=== PATIENT | male | born 1965 | race Caucasian/White ===

== ENCOUNTER 2021-05-03 06:54 | Outpatient (CLI) | payer OTHER, SELFPAY ==
[2021-05-03 06:58] VITALS: BMI 27.3
--- NOTE | 2021-05-03 06:59 | ECG_ITS ---
[facility] Test Date: 2021-05-03 Pat Name: Taz Scott Department: Room: Gender: Male Joint Yarner: Ignacia Mitchell : 1965 Requested By: Delma Arias Order Number: [id number] Annmarie MD: Jessica Collins M.D. Interpretive Statements NAME OF STUDY: TREADMILL STRESS TEST INDICATION: Palpitations Baseline blood pressure of 144/109 mm Hg, heart rate of 72 beats per minute and oxygen saturation of 96%. EKG showed normal sinus rhythm, normal axis with nonspecific T wave inversion in lead III. The patient exercised for 9 minutes 24 seconds on a standard Jan protocol. Patient attained a maximum heart rate of 156 beats per minute(93% of the maximum predicted heart rate) with a blood pressure at the peak exercise of 168/103 mm Hg and oxygen saturation 90%. The EKG at the peak exercise revealed sinus tachycardia with no significant ST-T wave changes. Patient did not have any chest pain or any significant arrhythmis with the exercise. The study was terminated due to exertional fatigue and shortness of breath. During the recovery phase, there were no new changes. Blood pressure at the end of the recovery phase was 132/86 mm Hg with a heart rate of 101 beats per minute and oxygen saturation of 96%. CONCLUSION: 1. Normal EKG response to treadmill exercise. 2. No exercise-induced chest pain or cardiac arrhythmia 3. Excellent exercise tolerance, attained a maximum of 13.5 METs. Maximum VO2 47.3 mL/kg/min. 4. Baseline hypertension with normal response to exercise. Electronically Signed On 05-06-2021 18:44:35 PROFESSIONAL CASTER by Jessica Collins M.D. [email or web address].Gnip/store/OM/[id number]/[id number]
[2021-05-03 07:50] VITALS: BP 132/86; PULSE 99
== END 2021-05-03 06:55 | disposition home or self-care (01) ==
LOC: CDL 06:55
PROVIDERS: PCP Physician Assistant; Visit Provider Family Medicine
DX: R00.2 Palpitations (principal)
CPT/HCPCS: 93017

== ENCOUNTER 2021-07-31 23:12 | Emergency (ER) | payer OTHER, SELFPAY ==
--- NOTE | 2021-07-31 23:12 | XRR_ITS ---
PROCEDURE INFORMATION: Exam: XR Chest Exam date and time: 07/31/2021 11:12 PM Age: 55 years old Clinical indication: Shortness of breath; Patient HX: SOB TECHNIQUE: Imaging protocol: XR of the chest. Views: 1 view. COMPARISON: [facility] Chest 2 views 06/08/2017 12:12 PM FINDINGS: Lungs: Unremarkable. No consolidation. Pleural spaces: Unremarkable. No pleural effusion. No pneumothorax. Heart/Mediastinum: Unremarkable. No cardiomegaly. Bones/joints: Unremarkable. XR/XR chest 1V portable [id number] IMPRESSION: No acute findings.
--- NOTE | 2021-07-31 23:12 | ECG_ITS ---
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 Measurements Intervals [place] Rate: 85 P: 63 VA: 167 QRS: 67 QRSD: 92 T: 52 QT: 345 QTc: 410 Interpretive Statements SINUS RHYTHM LEFT ATRIAL ENLARGEMENT [-0.15mV P-WAVE IN V1/V2] No previous ECG available for comparison Electronically Signed On 08-01-2021 17:44:11 NEUROSURGERY RESEARCH DIRECTOR by Marquita Wilhelm M.D. [email or web address].CV Propertiesbrentwood behavioral healthcare of mississippiColor Promosadams county hospitalArtsy/store/OM/[id number]/ecg/[id number]
[2021-07-31 23:16] VITALS: BP 144/102; PULSE 88; RESP 22; TEMP 36.7; O2SAT 98; BMI 28.0
--- NOTE | 2021-08-01 00:07 | PC.NURSE ---
patient states woke up 2245 feeling clammy, light headed, and nausea with elevated heart rate and low BP 90's systolic. they they drive to ER and states was still clammy but was starting to feel better. reports full cardiac work up in the last 3 months and taking lisinopril daily. now states feeling better.
[2021-08-01 00:11] LABS: Basophils % 0.6 %; Eosinophils # 0.2 10^3/uL (0.0-0.8); Eosinophils % 2.4 %; Hematocrit 49.1 % (42.0-52.0); Lymphocytes % 30.3 %; Mean Corpuscular HGB Conc 34.6 g/dL (30.0-36.0); Mean Corpuscular Hemoglobin 30.6 pg (28.0-34.0); Mean Corpuscular Volume 88.5 fl (80-94); Mean Platelet Volume 10.9 fL (7.4-10.4); Monocytes # 0.5 10^3/uL (0.2-0.9); Neutrophils # 3.93 10^3/uL (1.8-7.7); Neutrophils % 58.4 %; Nucleated Red Blood Cells % 0 %; Platelet Count 152 10^3/cmm (130-400); Red Blood Count 5.55 10^6/uL (4.1-5.3); Red Cell Distribution Width 12.7 % (12.1-15.1); White Blood Count 6.7 10^3/uL (4.0-10.0)
[2021-08-01 00:35] LABS: Alanine Aminotransferase 45 U/L (0-41); Albumin Level 4.5 g/dL (3.5-5.2); Alkaline Phosphatase 61 IU/L (40-130); Aspartate Amino Transferase 26 U/L (0-40); Blood Urea Nitrogen 17 mg/dL (6-20); Calcium 8.7 mg/dL (8.5-10.5); Carbon Dioxide 23 mmol/L (22-29); Chloride 100 mmol/L (98-107); Globulin 2.6 g/dL (1.3-4.6); Glomerular Filtration Rate 78.2 mL/min (90-130); Glucose 122 mg/dL (65-115); Osmolality Calculated 283 mOsm/kg (285-295); Sodium 135 mmol/L (136-145); Total Bilirubin 0.2 mg/dL (0.15-1.2); Total Protein 7.1 g/dL (6.6-8.7); Troponin(5th) Baseline 8 ng/L (0-15)
--- NOTE | 2021-08-01 00:46 | ED_ITS ---
HPI - Chest Pain General: Chief Complaint: Chest Pain Stated Complaint: Afib\ SOB \Dizzy Time Seen by Provider: 07/31/21 23:24 Source: patient Mode of arrival: ambulatory Limitations: no limitations History of Present Illness: 55-year-old male who states he woke up this evening felt like he is having palpitations with chest discomfort. He states that he believes that he is had paroxysmal A. fib in the past he states he had a Holter monitor and they were unable to find anything known to recontact the A. fib he said has had symptoms like this over the last year. States that since he has been. Feels much improved his heart rate is slowed down his palpitations have stopped his heart rate here is in the 80s denies any shortness of breath. Associated symptoms: Reports palpitations; Deny abdominal pain, dyspnea, fever(s), nausea or vomiting Review of Systems Const: Denies: fever(s), chills, body aches or change in appetite Eyes: Denies: blurry vision or eye discomfort ENMT: Denies: throat pain or dental pain Card: Reports: chest pain, palpitations and irregular heart rhythm Resp: Denies: dyspnea GI: Denies: abdominal pain, nausea, vomiting or diarrhea : Denies: dysuria Musc: Denies: neck pain or back pain Skin/Breast: Denies: rash Neuro: Denies: headache(s) Psych: Denies: depression Yahir/Lymph: Denies: easy bruising All/Imm: Denies: urticaria Physical Exam Const: COMMON NORMALS: no acute distress, patient oriented x3 and healthy appearing HENMT: COMMON NORMALS: normocephalic and atraumatic HEAD & SCALP: normocephalic and atraumatic Eye: COMMON NORMALS: Equal, round and reactive pupils present and EOMs intact bilaterally PUPIL: Yes Equal, round and reactive pupils present Neck/C-Spine: COMMON NORMALS: full ROM and supple Chest: COMMONS NORMALS: normal inspection of the chest and normal palpation of entire chest wall Resp: COMMON NORMALS: normal respiratory effort, No retractions, No use of accessory muscles and clear to auscultation bilaterally AUSCULTATION: clear to auscultation bilaterally Cardio: COMMON NORMALS: regular rate, regular rhythm and No murmurs present (Cardio) RATE: regular rate RHYTHM: regular rhythm GI: COMMON NORMALS: Normal to inspection, nondistended, normoactive bowel sounds present, Soft to palpation, non-tender and no masses PALPATION: Yes Soft to palpation Extremity: COMMON NORMALS: normal to inspection and full ROM Neuro: COMMON NORMALS: patient oriented x3, moves all extremities and no focal motor deficits Psych: COMMON NORMALS: mental status grossly normal, Normal thought process present and cooperative THOUGHT PROCESS: Normal thought process present Skin: COMMON NORMALS: no rashes or lesions noted and no wounds GENERAL SKIN EXAM: no rashes or lesions noted Course Vital Signs: Vital signs: Vital Signs Temperature 98.1 F 07/31/21 23:16 Pulse Rate 88 07/31/21 23:16 Respiratory Rate 22 H 07/31/21 23:16 Blood Pressure 144/102 07/31/21 23:16 Pulse Oximetry 98 07/31/21 23:16 MDM - Chest Pain Medical Decision Making Patient presents here with palpitations could be possibly SVT or paroxysmal A. fib he has been in normal sinus rhythm here and asymptomatic initial repeat troponins are negative we will get him cardiology follow-up he is return if worsening he understands agrees to plan. Lab Data : 07/31/21 00:03 07/31/21 00:03 Radiology Impressions Chest X-Ray 07/31/21 23:12 IMPRESSION: No acute findings. Laboratory Results WBC 6.7 10^3/uL (4.0-10.0) 07/31/21 00:03 RBC 5.55 10^6/uL (4.1-5.3) H 07/31/21 00:03 Hgb 17.0 g/dL (11.7-16.6) H 07/31/21 00:03 Hct 49.1 % (42.0-52.0) 07/31/21 00:03 MCV 88.5 fl (80-94) 07/31/21 00:03 MCH 30.6 pg (28.0-34.0) 07/31/21 00:03 MCHC 34.6 g/dL (30.0-36.0) 07/31/21 00:03 RDW 12.7 % (12.1-15.1) 07/31/21 00:03 Plt Count 152 10^3/cmm (130-400) 07/31/21 00:03 MPV 10.9 fL (7.4-10.4) H 07/31/21 00:03 Neut % (Auto) 58.4 % 07/31/21 00:03 Lymph % (Auto) 30.3 % 07/31/21 00:03 [place] % (Auto) 8.0 % 07/31/21 00:03 Eos % (Auto) 2.4 % 07/31/21 00:03 Baso % (Auto) 0.6 % 07/31/21 00:03 Neut # (Auto) 3.93 10^3/uL (1.8-7.7) 07/31/21 00:03 Lymph # (Auto) 2.0 10^3/uL (0.8-4.8) 07/31/21 00:03 [place] # (Auto) 0.5 10^3/uL (0.2-0.9) 07/31/21 00:03 Eos # (Auto) 0.2 10^3/uL (0.0-0.8) 07/31/21 00:03 Baso # (Auto) 0.0 10^3/uL (0.0-0.1) 07/31/21 00:03 Nucleated RBC % (auto) 0 % 07/31/21 00:03 Nucleated RBCs # 0.0 /100WBC 07/31/21 00:03 Sodium 135 mmol/L (136-145) L 07/31/21 00:03 Potassium 4.0 mmol/L (3.5-5.1) 07/31/21 00:03 Chloride 100 mmol/L (98-107) 07/31/21 00:03 Carbon Dioxide 23 mmol/L (22-29) 07/31/21 00:03 Anion Gap 16.0 (5-19) 07/31/21 00:03 BUN 17 mg/dL (6-20) 07/31/21 00:03 Creatinine 1.0 mg/dL (0.7-1.2) 07/31/21 00:03 GFR Calculation 78.2 mL/min (90-130) L 07/31/21 00:03 Glucose 122 mg/dL (65-115) H 07/31/21 00:03 Calculated Osmolality 283 mOsm/kg (285-295) L 07/31/21 00:03 Calcium 8.7 mg/dL (8.5-10.5) 07/31/21 00:03 Total Bilirubin 0.2 mg/dL (0.15-1.2) 07/31/21 00:03 AST 26 U/L (0-40) 07/31/21 00:03 ALT 45 U/L (0-41) H 07/31/21 00:03 Alkaline Phosphatase 61 IU/L (40-130) 07/31/21 00:03 Troponin T Baseline 8 ng/L (0-15) 07/31/21 00:03 Troponin T 120 Minute 12.86 ng/L (0-15) 08/01/21 02:17 Total Protein 7.1 g/dL (6.6-8.7) 07/31/21 00:03 Albumin 4.5 g/dL (3.5-5.2) 07/31/21 00:03 Globulin 2.6 g/dL (1.3-4.6) 07/31/21 00:03 EKG Data EKG 1: I personally reviewed and interpreted this EKG as follows: EKG interpretation date: 08/01/21 EKG interpretation time: 23:19 Interpretation: nsr hr [address] or t wave abnormalities qrs 92 qtc 387 EKG 2: I personally reviewed and interpreted this EKG as follows: EKG interpretation date: 08/01/21 EKG interpretation time: 01:37 Interpretation: Normal sinus rhythm heart rate [address] or T wave abnormalities QRS 101 QTC 409 Discharge Plan Discharge Patient Disposition: Home Clinical Impression: Palpitations Condition: Stable Discharge Orders: Discharge ED (Routine); Ordered 08/01/21 Ordered By: Chandrakant Duggan Referrals: Marquita Wilhelm MD [Physician] - 1-3 days Delma Morales PA [Primary Care Provider] - 1-3 days Discharge Diet: Advance as tolerated Discharge Activity: Resume usual activity Patient Instructions: Heart Palpitations (ED) Coding Level of Care Code ED Information Systems Security Specialist for Chg Fwd Exam Comprehensive
--- NOTE | 2021-08-01 01:53 | ECG_ITS ---
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 Measurements Intervals [place] Rate: 72 P: 50 UT: 162 QRS: 45 QRSD: 101 T: 40 QT: 385 QTc: 423 Interpretive Statements SINUS RHYTHM LEFT ATRIAL ENLARGEMENT [-0.15mV P-WAVE IN V1/V2] Compared to ECG 07/31/2021 23:19:55 No significant changes Electronically Signed On 08-01-2021 17:49:35 OIL SPOT WASHER by Marquita Wilhelm M.D. https://[employer].CleverSetsouth sunflower county hospitalCertica Solutionswvumedicine [facility].GoPago/store/OM/[id number]/ecg/[id number]
[2021-08-01 02:41] LABS: Troponin 5 2HR 12.86 ng/L (0-15)
[2021-08-01 02:48] VITALS: BP 112/73; PULSE 71; RESP 16
[2021-08-01 02:50] LABS: Troponin 5 2HR Delta 4.86 ABS# (0-10)
--- NOTE | 2021-08-01 14:19 | DCPLANNER ---
Addendum entered by Gertrudis Nogueira 09/06/21 08:09: Patient had a follow up appointment scheduled for 08.29.[address] Collins at [facility] [place] - patient did attend appointment. Original Note: sports betting manager had message to schedule a follow up appointment for patient with [facility]. sports betting manager called [facility], spoke with Esther, gave clinic patients information. A follow up appointment was scheduled for , August 29, 2021 at 9:[address] Collins. sports betting manager called patient, left message for patient to return vocational case manager phone call.
== END 2021-08-01 02:49 | disposition home or self-care (01) ==
PROVIDERS: Emergency Provider Emergency Medicine; PCP Physician Assistant
DX: R00.2 Palpitations (principal)
CPT/HCPCS: 36415; 71045; 80053; 84484; 85025; 93005; 99283

== ENCOUNTER 2023-06-19 14:50 | Emergency (ER) | payer OTHER, SELFPAY ==
[2023-06-19 14:52] VITALS: BP 167/94; PULSE 89; RESP 15; TEMP 36.6; O2SAT 97
--- NOTE | 2023-06-19 15:27 | ECG_ITS ---
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 Measurements Intervals [place] Rate: 92 P: 55 PA: 164 QRS: 54 QRSD: 94 T: 45 QT: 352 QTc: 437 Interpretive Statements SINUS RHYTHM WITH SINUS ARRHYTHMIA LEFT ATRIAL ENLARGEMENT [-0.15mV P-WAVE IN V1/V2] NONSPECIFIC T-WAVE ABNORMALITY Compared to ECG 08/01/2021 01:37:02 T-wave abnormality now present Electronically Signed On 06-19-2023 16:33:20 COMBINATION TECHNICIAN by Zeferino Bianchi M.D. [email or web address].Oportunistamerit health river regionJustPartsdoctors hospital.[employer]/store/NU/[id number] f
--- NOTE | 2023-06-19 15:27 | XR_ITS ---
WS: [id number] Exam: XR chest 1V portable [id number] Date/Time of Exam: 06/19/2023 3:27 PM Reason For Exam: CXP Comparison 07/31/2021. Findings: The lungs are clear and fully expanded. Costophrenic angles are sharp. No infiltrates. Bronchovascula r relief appears normal. Cardiac silhouette is unremarkable. Bony elements are intact. IMPRESSION: Unremarkable chest radiograph.
--- NOTE | 2023-06-19 15:29 | W.ED.CHESTPA ---
HPI - Chest Pain General: Chief Complaint: Chest Pain Stated Complaint: Nausea, Chest/arm tightness Time Seen by Provider: 06/19/23 15:28 History of Present Illness: 57-year-old male presents to the emergency department stating he feels some pressure around his neck and his shoulders. He states he did lift for wheelbarrow full of wood yesterday and was chopping wood yesterday. He states he also feels like he is having some elevated blood pressure although his blood pressure today when he came to the emergency department was 138/95 he states he was checked out previously by cardiology and has been doing well. He denies increased life stressors. He states he does have a generalized headache and felt like he had some dizziness at that time. He denies active pain but states the muscles of his neck and shoulders feel tight. He states he also felt a little nauseated at that time. Associated symptoms: Reports nausea Review of Systems General: Reports: 10 or more systems reviewed and unremarkable except in HPI and below Card: Reports: other (Chest pressure) GI: Reports: nausea Neuro: Reports: headache(s) and dizziness PFSH ED PFSH: Medical History Tobacco chew use Surgical History S/P appendectomy Family History Father Diabetes Mother Hypertension Social History Smoking and tobacco/nicotine status: current every day tobacco/nicotine user (chewing tobacco) smokeless tobacco Smokeless tobacco user: chewing tobacco Physical Exam Narrative: EXAM NARRATIVE: Constitutional: the patient appears well nourished and with normal development. Vital signs reviewed as documented. HENMT: Normocephalic, atraumatic. External ears normal appearance without drainage. Nose without drainage, normal appearance. Mucus membranes moist. Neck is supple, No jugular venous distension, trachea is midline, no appreciable carotid bruits. No lymphadenopathy. No meningeal signs. Flexion, extension and lateral rotation is without pain. Eyes: Pupils are equal, round, reactive to light and accommodation. No scleral icterus. Extra-ocular movement are intact. Thorax is symmetrical and with equal rise and fall with respirations. Resp: Lungs are clear to auscultation. No wheezes, rales, crackles or ronchi at present. Cardio: Regular rate and rhythm. Positive S1, S2. No appreciable murmurs, rubs or gallops. GI: Abdominal exam reveals normal bowel sounds to all quadrants. No organomegaly. No obvious palpable masses noted. No hepatomegally appreciated. Soft, non-tender to palpation. Extremity: Extremities are non-edematous and both femoral and pedal pulses are 2+ and equal bilaterally. Moves all extremities well, sensation in all extremities. Neuro: Alert and oriented x4, person, place, time and situation. Cranial nerves II through XII are grossly intact, there is no focal neurological deficits that I can appreciate at present. Motor strength in the upper and lower extremities are equal and bilateral 5/5. Psych: Cooperative, calm, normal thought process, appropriate judgment. Skin: No lesions, rashes. No gross abnormalities noted. Back: Symmetrical, no obvious deformity, No CVA tenderness Course Vital Signs: Vital signs: Vital Signs Temperature 97.9 F 06/19/23 18:05 Pulse Rate 68 06/19/23 18:05 Respiratory Rate 14 06/19/23 18:05 Blood Pressure 142/95 06/19/23 18:05 Pulse Oximetry 96 06/19/23 18:05 Oxygen Delivery Me thod Room Air 06/19/23 17:09 MDM - Chest Pain Medical Decision Making Physical exam completed and documented, I will obtain serial cardiac enzymes, serial twelve-lead EKGs, chest x-ray, CBC, CMP, urinalysis, B-type natriuretic peptide, PT/PTT/INR, and a chest x-ray. I provide cardiac dose aspirin if indicated. I have reviewed any pervious and pertinent medical records for assist in obtaining beneficial medical information to improved the care and treatment of the patient. I will reevaluate in consider hospitalist consultation and cardiology consultation. Medical Records I reviewed the patient's medical records. Lab Data I reviewed the patient's lab results. 06/19/23 15:46 06/19/23 15:46 Laboratory Results WBC 5.74 10^3/uL (3.29-11.43) 06/19/23 15:46 RBC 5.57 10^6/uL (3.85-5.65) 06/19/23 15:46 Hgb 16.90 g/dL (11.27-16.99) 06/19/23 15:46 Hct 48.7 % (37-53) 06/19/23 15:46 MCV 87.4 fl (82-101) 06/19/23 15:46 MCH 30.3 pg (27-33) 06/19/23 15:46 MCHC 34.7 g/dL (30-55) 06/19/23 15:46 RDW 12.6 % (12.1-15.1) 06/19/23 15:46 Plt Count 152 10^3/cmm (157-399) L 06/19/23 15:46 MPV 10.9 fL (7.4-10.4) H 06/19/23 15:46 Neut % (Auto) 71.2 % 06/19/23 15:46 Lymph % (Auto) 21.4 % 06/19/23 15:46 [place] % (Auto) 6.1 % 06/19/23 15:46 Eos % (Auto) 0.5 % 06/19/23 15:46 Baso % (Auto) 0.5 % 06/19/23 15:46 Neut # (Auto) 4.08 10^3/uL (1.8-7.7) 06/19/23 15:46 Lymph # (Auto) 1.2 10^3/uL (0.8-4.8) 06/19/23 15:46 [place] # (Auto) 0.4 10^3/uL (0.2-0.9) 06/19/23 15:46 Eos # (Auto) 0.0 10^3/uL (0.0-0.8) 06/19/23 15:46 Baso # (Auto) 0.0 10^3/uL (0.0-0.1) 06/19/23 15:46 Nucleated RBC % (auto) 0 % 06/19/23 15:46 Nucleated RBCs # 0.0 /100WBC 06/19/23 15:46 PT 13.50 SECONDS (12.1-14.9) 06/19/23 15:46 INR 1.00 (0.8-1.2) 06/19/23 15:46 APTT 33.6 SECONDS (23.9-36.7) 06/19/23 15:46 Sodium 136 mmol/L (136-145) 06/19/23 15:46 Potassium 4.1 mmol/L (3.5-5.1) 06/19/23 15:46 Chloride 100 mmol/L (98-107) 06/19/23 15:46 Carbon Dioxide 22 mmol/L (22-29) 06/19/23 15:46 Anion Gap 18.1 (5-19) 06/19/23 15:46 BUN 12 mg/dL (6-20) 06/19/23 15:46 Creatinine 0.8 mg/dL (0.7-1.2) 06/19/23 15:46 GFR Calculation 100.4 mL/min (90-130) 06/19/23 15:46 Glucose 108 mg/dL (65-115) 06/19/23 15:46 Calculated Osmolality 282 mOsm/kg (285-295) L 06/19/23 15:46 Calcium 9.7 mg/dL (8.5-10.5) 06/19/23 15:46 Total Bilirubin 0.5 mg/dL (0.15-1.2) 06/19/23 15:46 AST 30 U/L (0-40) 06/19/23 15:46 ALT 48 U/L (0-41) H 06/19/23 15:46 Alkaline Phosphatase 72 U/L (40-130) 06/19/23 15:46 Troponin T Baseline < 6 ng/L (0-15) 06/19/23 15:46 Troponin T 120 Minute 6.00 ng/L (0-15) 06/19/23 17:48 Delta Troponin T 0.50725 ABS# (0-10) 06/19/23 17:48 NT-Pro-B Natriuret Pep < 36 pg/mL (0-125) 06/19/23 15:46 Total Protein 7.6 g/dL (6.6-8.7) 06/19/23 15:46 Albumin 4.8 g/dL (3.5-5.2) 06/19/23 15:46 Globulin 2.8 g/dL (1.3-4.6) 06/19/23 15:46 All radiology interpretation(s) finalized by discharge EKG Data EKG 1: Interpretation: Twelve-lead EKG obtained at 1456 and reviewed at 1458 demonstrates sinus rhythm at a ventricular rate of 92 bpm, ND interval 164, QRS duration 94, QT 352, QTc [address] elevation or depression to demonstrate acute ischemia or infarction at present. EKG 2: Interpretation: Twelve-lead EKG obtained at 1726 and reviewed at 1730 demonstrates sinus rhythm with a ventricular rate of 65 bpm, ND interval 146, QRS duration 98, QT 392, QTc [address] elevation or depression to demonstrate acute ischemia or infarction at present. Discharge Plan Discharge Patient Disposition: Home Clinical Impression: Atypical chest pain, Chest pain, non-cardiac, Headache Condition: Stable Prescriptions: No Action acetaminophen [Tylenol] 325 mg tablet 325 mg PO QID PRN (Reason: Pain) ibuprofen 200 mg Tablet 600 mg PO Q6H PRN (Reason: Pain) Discharge Orders: Discharge ED (Routine); Ordered 06/19/23 Ordered By: Bear Moya Referrals: Delma Morales PA [Primary Care Provider] - Discharge Diet: Advance as tolerated Discharge Activity: Resume usual activity Patient Instructions: Opioid Safety, Pain Management Activity Restrictions/Additional Instructions: Activity Restrictions/Additional Instructions: Thank you for choosing [facility] for your healthcare needs today. Please realize that you were seen in the Emergency Department and that we are providing you with an emergency medical screening exam and this may not be a complete and all inclusive of all the testing and or medical work-up that you may need to determine your ailment or severity of your illness. It is very important that you follow-up as instructed with your Primary care provider or Specialist for additional evaluation and to discuss your medical treatment plan. You may return to the Emergency Department should you have concerns or if your condition changes or worsens in any way. Coding Level of Care Code ED Billiard Table Mechanic for Maco Iqbal
[2023-06-19] MEDS: aspirin 81 mg Chew Tablet 324 MG PO (15:37)
[2023-06-19 15:51] VITALS: BP 121/94; PULSE 75; RESP 21; O2SAT 97
--- NOTE | 2023-06-19 15:58 | PC.PHAR ---
PT STATES HAS A LOW BLOOD PRESSURE REACTION WHEN TAKING LISINOPRIL AND WOULD RATHER NOT TAKE IT. 06/19/23
[2023-06-19 16:00] VITALS: BP 140/97; PULSE 75; RESP 19; O2SAT 98
[2023-06-19 16:04] LABS: Basophils % 0.5 %; Eosinophils % 0.5 %; Hematocrit 48.7 % (37-53); Lymphocytes # 1.2 10^3/uL (0.8-4.8); Lymphocytes % 21.4 %; Mean Corpuscular HGB Conc 34.7 g/dL (30-55); Mean Corpuscular Hemoglobin 30.3 pg (27-33); Mean Corpuscular Volume 87.4 fl (82-101); Mean Platelet Volume 10.9 fL (7.4-10.4); Monocytes # 0.4 10^3/uL (0.2-0.9); Monocytes % 6.1 %; Neutrophils # 4.08 10^3/uL (1.8-7.7); Neutrophils % 71.2 %; Nucleated Red Blood Cells % 0 %; Platelet Count 152 10^3/cmm (157-399); Red Blood Count 5.57 10^6/uL (3.85-5.65); Red Cell Distribution Width 12.6 % (12.1-15.1); White Blood Count 5.74 10^3/uL (3.29-11.43)
[2023-06-19 16:10] LABS: Partial Thromboplastin Time 33.6 SECONDS (23.9-36.7)
[2023-06-19 16:14] LABS: Troponin(5th) Baseline < 6 ng/L (0-15)
[2023-06-19 16:23] LABS: Alanine Aminotransferase 48 U/L (0-41); Albumin Level 4.8 g/dL (3.5-5.2); Alkaline Phosphatase 72 U/L (40-130); Anion Gap 18.1 (5-19); Aspartate Amino Transferase 30 U/L (0-40); Blood Urea Nitrogen 12 mg/dL (6-20); Calcium 9.7 mg/dL (8.5-10.5); Carbon Dioxide 22 mmol/L (22-29); Chloride 100 mmol/L (98-107); Globulin 2.8 g/dL (1.3-4.6); Glomerular Filtration Rate 100.4 mL/min (90-130); Glucose 108 mg/dL (65-115); NT Pro B Type Natriuretic Pept < 36 pg/mL (0-125); Osmolality Calculated 282 mOsm/kg (285-295); Potassium 4.1 mmol/L (3.5-5.1); Sodium 136 mmol/L (136-145); Total Bilirubin 0.5 mg/dL (0.15-1.2); Total Protein 7.6 g/dL (6.6-8.7)
[2023-06-19 17:09] VITALS: BP 142/95; PULSE 68; RESP 14; O2SAT 96
--- NOTE | 2023-06-19 17:27 | ECG_ITS ---
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 Measurements Intervals [place] Rate: 65 P: 47 ME: 146 QRS: 45 QRSD: 98 T: 49 QT: 392 QTc: 409 Interpretive Statements SINUS RHYTHM LEFT ATRIAL ENLARGEMENT [-0.15mV P-WAVE IN V1/V2] Compared to ECG 06/19/2023 14:56:41 Sinus arrhythmia no longer present T-wave abnormality no longer present Electronically Signed On 06-20-2023 6:08:20 AUTO BODY MECHANIC by Zeferino Bianchi M.D. [email or web address] Technologiesven[facility] hospital.Etacts/store/OM/[id number]
[2023-06-19 18:05] VITALS: BP 142/95; PULSE 68; RESP 14; TEMP 36.6; O2SAT 96
[2023-06-19 18:20] LABS: Troponin 5 2HR Delta 0.00001 ABS# (0-10)
== END 2023-06-19 18:05 | disposition home or self-care (01) ==
PROVIDERS: Emergency Provider Internal Medicine; PCP Physician Assistant
DX: R07.89 Other chest pain (principal); R51.9 Headache, unspecified; Z72.0 Tobacco use
CPT/HCPCS: 36415; 71045; 80053; 83880; 84484; 85025; 85610; 85730; 93005; 99285

== ENCOUNTER 2024-08-12 12:29 | Outpatient (RCR) | payer OTHER, SELFPAY | END 2024-08-29 23:59 | disposition home or self-care (01) | LOC: SPT 12:29 | PROVIDERS: Visit Provider Physician Assistant | DX: M54.2 Cervicalgia (principal) | CPT/HCPCS: 97110; 97161 ==

== ENCOUNTER 2024-09-12 10:10 | Outpatient (CLI) | payer OTHER, SELFPAY ==
--- NOTE | 2024-09-12 10:16 | MR_ITS ---
WS: [id number] MRI CERVICAL SPINE NONCONTRAST TECHNIQUE: Sagittal T1, T2 and STIR imaging. Axial T2, gradient, and fiesta imaging. CLINICAL INFORMATION: SPINAL STENOSIS W/CERVICAL REGION MYELOPATHY COMPARISON: None. FINDINGS: Mild cervical curve. Straightening of the normal cervical lordosis. Disc bulging worse at C5-C6 and C6-C7. C2-C3: Normal. C3-C4: Mild facet arthropathy. Spinal canal and foramina are patent. C4-C5: Slight retrolisthesis. Disc osteophyte complex with mild central canal stenosis. Mild facet arthropathy. Mild bilateral foraminal narrowing. C5-C6: Shallow central disc osteophyte protrusion with slight indentation of the cervical cord. Mild central canal stenosis. Moderate facet arthropathy. Mild LEFT bony foraminal narrowing. C6-C7: LEFT paracentral disc osteophyte protrusion with indentation on the cervical cord. Moderate central canal stenosis. Moderate LEFT and no significant RIGHT foraminal narrowing. Mild facet arthropathy. C7-T1: Spinal canal and foramina are patent. Visualized brain stem structures: Normal. Prevertebral soft tissues: Normal. MR/MR cervical spin wo con* [id number] IMPRESSION: 1. Disc osteophyte protrusions with mild central canal stenosis C4-C5 and C5-C 6 with slight indentation cervical cord. 2. Disc osteophyte protrusion C6-7 with moderate central canal stenosis. Inden tation flattening of the cervical cord. 3. Moderate LEFT C6-7 bony foraminal narrowing. 4. Mild LEFT C5-C6 bony foraminal narrowing.
== END 2024-09-12 10:11 | disposition home or self-care (01) ==
PROVIDERS: PCP Physician Assistant; Visit Provider Physician Assistant
DX: M48.02 Spinal stenosis, cervical region (principal); M25.78 Osteophyte, vertebrae; M50.221 Other cervical disc displacement at C4-C5 level; M50.222 Other cervical disc displacement at C5-C6 level; M50.223 Other cervical disc displacement at C6-C7 level; R93.7 Abnormal findings on diagnostic imaging of other parts of musculoskeletal system; M43.8X2 Other specified deforming dorsopathies, cervical region; M47.892 Other spondylosis, cervical region
CPT/HCPCS: 72141

== ENCOUNTER 2024-12-25 15:20 | Emergency (ER) | payer OTHER, SELFPAY ==
--- NOTE | 2024-12-25 15:24 | ECG_ITS ---
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 Measurements Intervals [place] Rate: 113 P: 86 MS: 143 QRS: 96 QRSD: 93 T: 32 QT: 312 QTc: 428 Interpretive Statements SINUS TACHYCARDIA LEFT ATRIAL ENLARGEMENT [-0.15mV P-WAVE IN V1/V2] BORDERLINE RIGHT AXIS DEVIATION [QRS AXIS > 90] NONSPECIFIC T-WAVE ABNORMALITY Compared to ECG 06/19/2023 17:26:16 T-wave abnormality now present Sinus rhythm no longer present Electronically Signed On 12-28-2024 13:55:29 CDT by Trung Jiang M.D. [email or web address]/[id number]
--- OUTSIDE RECORDS SUMMARY | 2024-12-25 15:25 | XMS_ITS | Patient Health Record ---
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 Name Role Phone Delma Cadet Primary Care Provider Kristofer Crawford Unavailable [phone] Allergies Allergen (clinical drug ingredient) Drug/Non Drug Allergy documented on EMR Reaction Allergy Type Onset Date Status amoxicillin Amoxicillin Unknown Drug Allergy Act renee Reason For Referral Reason Comprehensive cervic al injections Diagnosis 1 Cervical radiculopat hy (M54.12) Diagnosis 2 Neck pain (M54.2) Diagnosis 3 Cervical spondylosis (M47.812) Referring Provider First Name Kristofer Referring Provider Last Name Gm Referring Provider Speciality Neurosurge ry Referred Organization [facility] Referred Provider Osman Sorensen Referred Address [address] [facility],[place],[address], General Notes Janae De La Garza 11:45:51 AM >pt picking up npp, patient is scheduled Referral Priority Routine Reason Comprehensive cervic al injections Diagnosis 1 Cervical radiculopat hy (M54.12) Diagnosis 2 Cervical spondylosis (M47.812) Diagnosis 3 Neck pain (M54.2) Referral Organization [facility] [place] Referring Provider First Name Kristofer Referring Provider Last Name Gm Referring Provider Speciality Neurosurge ry Referred Organization [facility] Referred Provider Osman Sorensen Referred Address [address] [facility],[place],[address] Referred Provider Specialty Intervention al Pain Medicine Referral Priority Routine Medications Medication SIG (Take, Route, Fr equency, Duration) Notes Start Date End Date Status Cyclobenzaprine HCl Active Metoprolol Succinate Active Social History Tobacco Use: Social History Observation Description Date Details (start date - stop date) Never Smoker NA - NA Social History Drugs/Alcohol: Social Info Question Answer Notes Drugs Have you used drugs other than those for medical reasons in the past 12 months? No Drug/Alcohol: Social Info Question Answer Notes AUDIT-C (Standard) Did you have a drink containing alcohol in the past year? Yes How often did you have a drink containing alcohol in the past year? 2 to 3 times a week (3 points) How many drinks did you have on a typical day when you were drinking in the past year? Declined to specify (0 point) How often did you have six or more drinks on one occasion in the past year? Declined to specify (0 point) Points 3 Interpretation Negative Tobacco Use: Social Info Question Answer Notes Tobacco Control (Standard) Tobacco use: Nonsmoker Problems Problem Type SNOMED Code ICD Code Onset Dates Problem Status W/U Status Risk Notes Problem Cervical radiculopathy (39845084) Cervical radiculopathy (M54.12) Active confirmed Problem Neck pain (45840184) Neck pain (M54.2) Active confirmed Problem Cervical spondylosis (956444781) Cervical spondylosis (M47.812) Active confirmed Vital Signs Heart Rate 77 /min 10/04/2024 Temperature 97.8 degrees Fahrenheit 10/04/2024 Respiratory Rate 20 /min 10/04/2024 Height-cm 172.72 cm 10/04/2024 Oximetry 95 % 10/04/2024 Blood pressure diastolic 64 mm Hg 10/04/2024 Weight-kg 102.06 kg 10/04/2024 Height 68 in 10/04/2024 Blood pressure systolic 128 mm Hg 10/04/2024 Weight 225 lbs 10/04/2024 BMI 34.21 kg/m2 10/04/2024 Encounters Encounter Location Date Provider Diagnosis [facility] [address] [place] [id number] 10/04/2024 Kristofer Worrell Cervical radiculopat hy M54.12 ; Cervical spondylosis M47.812 and Neck pain M54.2 Assessments Encounter Date Diagnosis (ICD Code) Assessment Notes Treatment Notes Treatment Clinical Notes Section Notes 10/04/2024 Cervical radiculopathy (ICD-10 - M54.12) The patient's symptoms and clinical findings were reviewed. The patient has increased neck pain and upper extremity pain. He has numbness and tingling in the left arm. The patient went to physical therapy that he says made his symptoms worse. I reviewed and discussed the MRI of the cervical spine with the patient. There is spondylosis at C5-6 and C6-7 that could be the source of his symptoms. I explained to the patient, another possibility could be an inflammatory issue. I do not think neck surgery is indicated at this time. I recommended a referral to the pain clinic for comprehensive cervical injections to see if injections will provide sustained improvement in his symptoms. I will prescribe Robaxin 750 mg PO every 6 hours as needed for muscle spams. Questions were asked and answered to the patient's satisfaction. He is in agreement to the referral to the pain clinic. I will see him back for a follow-up in 6 months. If his pain increases, he will return sooner. ROS reviewed I Asia Smith LPN am scribing for, and in the presence of Kristofer Worrell MD. I, Kristofer Worrell, personally performed the services described in this documentation, as scribed by Asia Smith LPN in my presence, and it is both accurate and complete. 10/04/2024 Cervical spondylosis (ICD-10 - M47.812) 10/04/2024 Neck pain (ICD-10 - M54.2) Plan Of Treatment Next Appt Details Provider Name:Osman Sorensen, 02/08/2025 09:00:00 AM, [address] [facility] [place], [address], Provider Name:Kristofer Worrell, 04/04/2025 10:00:00 AM, [address] [facility] [place], [address], Insurance Providers Payer Name Payer Address Payer Phone Subscriber Number Group Number Insured Name Patient Relationship to Insured Coverage Start Date Coverage End Date Evin [address] [facility] KARLA Ramos [phone] [id number] Taz Scott Self - patient is the insured Medical (General) History Medical History History ICD Code Chicken Pox Pneumonia Hernia HBP LBP Bronchitis Surgical History Surgery Date(Month/Year) Appendix 2021
--- OUTSIDE RECORDS SUMMARY | 2024-12-25 15:25 | XMS_ITS | Continuity of Care Document ---
Author Organization KARLA [facility] Isidro, Ana Cristina, [facility] ([facility]) Address [address] [place] [address] Assessment No assessment recorded. Plan of Treatment Reminders Order Date Submit Date Provider Last Modified By Organization Details Last Modified Time Details Appointments None recorded. Lab thyrotropin , QN, serum or plasma 2024 025 [employer] [facility], [address] [place] [address], [address], [place], [address], 11:00:09 CMP, serum or plasma 2024 025 [employer] [facility], [address] [place] [address], [address], [place], [address], 21:23:29 CBC 2024 025 [facility], [address], [address], [place], [address], 11:37:06 PSA, serum or plasma 2024 025 [employer] [facility], [address] [place] [address] [address], [address], [place], [address], 21:23:31 urinalysis, complete 2024 025 [facility] [employer] [facility], [address], [address], [address], 11:17:14 culture, urine 2024 [employer] [facility], [address] [place] [address], [address], [place], [address], 21:23:32 testosteron e, total, serum 2024 [employer] [facility], [address] [place] [address] [address], [address], [place], [address], 21:23:30 Referral None recorded. Procedures None recorded. Surgeries None recorded. Imaging event monitor - 7 days [address] (Scheduling Orders), [address] [place], [address], 15:26:00 electrocard iogram 2024 [facility] [address] [place], [address], 15:08:57 Medication Orders lisinopril 10 mg tablet 2024 [facility], [address] [place] [address], [address], 16:42:38 tamsulosin 0.4 mg capsule 2024 [facility], [address] [place] [address], [address], 16:42:38 Patient TargetsNo targets recorded. Patient InstructionsNo instructions recorded. Reason for Referral None Reported. Results Created Date Observation Date Name Description Value Unit Range Abnormal Flag Note LastModifiedBy Organization Detail LastModifiedTime 12/24/1912/23/2024 URINA LYSIS WITH MICRO color YELLOW Not Available [facility] [address], [place], [address], 12/23/2024 11:17:14 12/24/1912/23/2024 URINA LYSIS WITH MICRO clarity CLEAR Not Available [facility] [address], [place], [address], 12/23/2024 11:17:14 12/24/1912/23/2024 URINA LYSIS WITH MICRO glu NEGATI VE Not Available [facility] [address], [place], [address], 12/23/2024 11:17:14 12/24/1912/23/2024 URINA LYSIS WITH MICRO bili NEGATI VE Not Available [facility] [address] [facility] [address], [place], [address], 12/23/2024 11:17:14 12/24/1912/23/2024 URINA LYSIS WITH MICRO ket NEGATI VE Not Available [facility] [address], [place], [address], 12/23/2024 11:17:14 12/24/19 25 12/23/2024 URINA LYSIS WITH MICRO S.g 1.010 1.005- 1.025 Not Available [facility] [address], [place], [address], 12/23/2024 11:17:14 12/24/1912/23/2024 URINA LYSIS WITH MICRO pH 7.0 5.0-7. 0 Not Available [facility] [address], [place], [address], 12/23/2024 11:17:14 12/24/1912/23/2024 URINA LYSIS WITH MICRO pro NEGATI VE Not Available [facility] [address], [place], [address], 12/23/2024 11:17:14 12/24/1912/23/2024 URINA LYSIS WITH MICRO uro 0.2 E.U./D L Not Available [facility] [address] [facility] [address], [place], [address], 12/23/2024 11:17:14 12/24/1912/23/2024 URINA LYSIS WITH MICRO nit NEGATI VE Not Available [facility] [address] [facility] [address], [place], [address], 12/23/2024 11:17:14 12/24/1912/23/2024 URINA LYSIS WITH MICRO blo NEGATI VE Not Available [facility] [address] [facility] [address], [place], [address], 12/23/2024 11:17:14 12/24/19 25 12/23/2024 URINA LYSIS WITH MICRO tristian NEGATI VE Not Available [facility] [address] [facility] [address], [place], [address], 12/23/2024 11:17:14 12/24/1912/23/2024 URINA LYSIS WITH MICRO WBC 0-1 Not Available [facility] [address] [facility] [address], [place], [address], 12/23/2024 11:17:14 12/24/1912/23/2024 URINA LYSIS WITH MICRO RBC NEGATI VE Not Available [facility] [address] [facility] [address], [place], [address], 12/23/2024 11:17:14 12/24/19 25 12/23/2024 URINA LYSIS WITH MICRO epi cells NEGATI VE Not Available [facility] [address] [facility] [address], [place], [address], 12/23/2024 11:17:14 12/24/1912/23/2024 URINA LYSIS WITH MICRO bacteria NEGATI VE Not Available [facility] [address], [place], [address], 12/23/2024 11:17:14 12/24/1912/23/2024 URINA LYSIS WITH MICRO other NG Not Available [facility] [address], [place], [address], 12/23/2024 11:17:14 12/24/1912/23/2024 CBC WBC 6.1 x10 4.5-10 .5 Not Available [facility] [address] [facility] [address], [place], [address], 12/23/2024 11:37:06 12/24/1912/23/2024 CBC RBC 5.62 x10 4.30-5 .90 Not Available [facility] [address] [facility] [address], [place], [address], 12/23/2024 11:37:06 12/24/1912/23/2024 CBC HGB 17.7 g/dL 13.5-1 8.0 Not Available [facility] [address] [facility] [address], [place], [address], 12/23/2024 11:37:06 12/24/1912/23/2024 CBC HCT 52.3 % 35.0-6 0.0 Not Available [facility] [address] [facility] [address], [place], [address], 12/23/2024 11:37:06 12/24/1912/23/2024 CBC MCV 93.0 fL 80.0-9 9.9 Not Available [facility] [address] [facility] [address], [place], [address], 12/23/2024 11:37:06 12/24/1912/23/2024 CBC MCH 31.4 pg 27.0-3 2.0 Not Available [facility] [address] [facility] 1, [place], [address], 12/23/2024 11:37:06 12/24/1912/23/2024 CBC MCHC 33.8 g/dL 32.0-3 6.0 Not Available [facility] [address] [facility] [address], [place], [address], 12/23/2024 11:37:06 12/24/1912/23/2024 CBC RDW 13.4 % 11.5-1 4.5 Not Available [facility] [address] [facility] [address], [place], [address], 12/23/2024 11:37:06 12/24/1912/23/2024 CBC plt 124.9 x10 150.0- 451.0 low Not Available [facility] [address] [facility] [address], [place], [address], 12/23/2024 11:37:06 12/24/1912/23/2024 CBC lymphocytes % 26.8 % 20.0-5 0.0 Not Available [facility] [address] [facility] 1, [place], [address], 12/23/2024 11:37:06 12/24/1912/23/2024 CBC granulcytes % 64.6 % 30.0-7 0.0 Not Available [facility] [address] [facility] 1, [place], [address], 12/23/2024 11:37:06 12/24/19 25 12/23/2024 CBC monocytes % 6.2 % 2.0-16 .0 Not Available [facility] [address] [facility] 1, [place], [address], 12/23/2024 11:37:06 12/24/1912/23/2024 CBC granulcytes# 3.9 x10 Not Meghana ilable [facility] [address] [facility] [address], [place], [address], 12/23/2024 11:37:06 12/24/1912/23/2024 CBC lymphocytes # 1.6 x10 Not Available [facility] [address] [facility] [address], [place], [address], 12/23/2024 11:37:06 12/24/1912/23/2024 CBC monocytes # 0.4 x10 Not Avai lable [facility] [address], [address], 12/23/2024 11:37:06 12/24/1912/23/2024 elect shreya escobar am No observ ation record ed. [email or web address] [facility] [address] [place], [address], 12/23/2024 15:35:49 Result Notes None recorded. Problems Name Problem SNOMED Code Status Onset Date Resolution Date Notes Provider Name and Address Organization Details Recorded Time Neck pain 52836153 Active [address] [facility], [place].LMiles[place] 17:05:21 Essential hypertensio n 97967040 Active [address] 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 [facility] 18:23:23 Problem Notes None recorded. Procedures Surgical History Date Name Laterality Status Provider Name and Address Organization Details Recorded Time appendectomy completed [facility] 12/23/2024 10:24:17 Imaging Results None recorded. Procedure Notes None recorded. Medical Equipment None Reported. Allergies No known drug allergies Medications Name Sig Start Date Stop Date Status Note LastModified by Organization Details LastModified Time cyclobenzapr ine 10 mg tablet TAKE 1 TABLET BY MOUTH THREE TIMES DAILY NEEDED for 10 days 2024 active Not Available Not Available Not Avai lable meloxicam 15 mg tablet TAKE 1 TABLET BY MOUTH EVERY DAY 12/23 completed Not Available Not Available Not Available methocarbamo l 750 mg tablet TAKE 1 TABLET BY MOUTH EVERY 6 HOURS FOR 7 DAYS 12/23 completed Not Available Not Available Not Available tamsulosin 0.4 mg capsule Take 1 capsule every day by oral route for 30 days. 2024 active Not Available Not Available Not Avai lable lisinopril 10 mg tablet Take 1 tablet every day by oral route. 2024 active Not Available Not Available Not Avai lable metoprolol tartrate 25 mg tablet Take 1 tablet twice a day by oral route for 90 days. 2024 active Not Available Not Available Not Avai lable lisinopril daily 12/21 completed Not Available Not Available Not Available Vitals Date Recorded Body height Heart rate Oxygen saturation Oxygen saturation in Arterial blood by Pulse oximetry Body temperature Systolic And Diastolic Provider Name and Address Organization Details Last Updated DateTime 193.04 cm 68 /min 98 % 98 % 98 [degF] 130/86 mm[Hg] ROC MCCAULEY PA-C [address] [place] [address], [phone] [facility] 10:36:06 Date Recorded Body mass index (BMI) Body weight Respiratory rate Provider Name and Address Organization Details Last Updated DateTime 12/23/2024 28 kg/m2 207388.53 g 20 /min [facility] 12/23/2024 10:46:05 Social History Question Answer Notes LastModified by Organizat ion Details LastModified Time Tobacco Smoking Status Former Smoker nicotine patches. he chewed until the first of [address] [facility], [place] Cristina 12/23/2024 10:23:51 What Is Your Level Of Caffeine Consumption? Occasional [email or web address] Information not available 12/23/2024 Sex: Unknown Functional Status Question Answer Note LastModified by Organizat ion Details LastModified Time Do you use any illicit or recreational drugs? No [email or web address] Information not available 12/23/2024 What is your level of alcohol consumption? Occasional [email or web address] Information not available 12/23/2024 Mental Status None recorded. Family History Nothing Reported. Medical History No medical history recorded. Immunizations Vaccine Type Date Status Note Provider Nam e and Address Organization Details Recorded Time COVID-19, mRNA, LNP-S, PF, 100 mcg/0.5mL dose or 50 mcg/0.25mL dose 12/21/[address] [facility], [place] Cristina 12/22/2023 12:35:53 COVID-19, mRNA, LNP-S, PF, 100 mcg/0.5mL dose or 50 mcg/0.25mL dose 01/18/[address] [facility], [place] 12/22/2023 12:35:53 Past Encounters Encounter ID Performer Location Encounter Start Date Encounter Closed Date Diagnosis/Indication Diagnosis SNOMED-CT Code Diagnosis ICD10 Code Diagnosis Note [id number] ROC MCCAULEY PA-C [facility] ([facility]) [address] [place] [phone] 12/23/2024 10:13:45 12/23/2024 11:52:32 Palpitations 71769537 R00.2 reviewed his home pulses and BP. got into [employer] system and reviewed his last appt with Dr. Wilhelm 9 and his holter reports from 2020.For now my advise is to stay on the scheduled BID Metoprolol 25 bid and take an extra dose on the days his pulse gets over 100. Tachycardia 8138001 R00. 0 Fatigue 61093078 R53.83 Nocturia d ue to benign prostatic hypertrophy 7487540179 101 N40.1 R35.1 Essential hypertension 31281103 I10 Health Concerns Section Related Observation LastModified by Organization Detai ls LastModified Time None Recorded Concern Status LastModified by Organization Details LastModified Time None Recorded Payers Encounter Date Sequence Insurance Name Policy Number Policy Kiran Covered Member ID Kiran Member ID Guarantor Name 12/23/2024 1 [employer] [facility]PO[facility] [id number] Taz Pabononer [id number] Taz Scott Notes Date Note Type Note Provider Name and Address Organization Details Recorded Time 12/24/19 25 text/ht ml PalpitationsReported by PatientHPIFor quality, patient reportsflutteringandirregular. For context, patient reportsat restandabrupt onset without warning. For associated symptoms, patient reportsfatigueandpresyncopebut reportsno chest pain/discomfortandno dyspnea. For location, patient reportschest. For severity, patient reportsmild. For duration, patient reportslasts minutesandbegan on: 5days. For onset/timing, patient reportsmultiple times per dayandintermittent. For alleviating factors, patient reportsrest(extra metoprolol). For associated diagnoses, patient reportspvcs. patient is concerned about his pain and unable to get to pain management due to them canceling his appointment he has just not been feeling good, high sweats, dizziness. blood pressure elevation over additional stress this utxv280/95 hr85 135/[address] Worrell wanted him to see Dr. Antoine. Still waiting to gt in Now appt in Jan. ROC MCCAULEY PA-C [address] [place] [address], [phone], [facility] 12/23/2024 15:26:19
--- OUTSIDE RECORDS SUMMARY | 2024-12-25 15:25 | XMS_ITS | Data Portability ---
Author Organization [place] [facility] Ana Cristina Felix [facility] Address [address] [address] Assessment No assessment recorded. Plan of Treatment Reminders Order Date Submit Date Provider Last Modified By Organization Details Last Modified Time Details Appointments None recorded. Lab thyrotropin , QN, serum or plasma 2024 025 [employer], [address] [place] [address], [address] [place], [address], 11:00:09 CMP, serum or plasma 2024 025 [employer] [facility], [address] [place] [address], [address], [place], [address], 21:23:29 CBC 2024 025 [facility], [address] [facility], [address], [place], [address], 11:37:06 PSA, serum or plasma 2024 025 [employer] [facility], [address] [place] [address], [address] [place], [address], 21:23:31 urinalysis, complete 2024 025 [facility], [address] [facility], [place], [address], 11:17:14 culture, urine 2024 [employer], [address] [place] [address], [address], [place], [address], 21:23:32 testosteron e, total, serum 2024 [facility], [address] [place] [address], [address], [place], [address], 21:23:30 TSH, serum or plasma 2024 [facility], [address] [place] [address], [address], [place], [address], 05:49:16 vitamin B12, serum 2024 025 [facility], [address] [place] [address], [address], [place], [address], 05:49:17 CMP, serum or plasma 2024 025 [facility], [address] [place] [address], [address], [place], [address], 05:49:15 CBC 2024 025 [facility], [address] [facility], [address], [place], [address], 5 14:50:59 Referral None recorded. Procedures None recorded. Surgeries None recorded. Imaging event monitor - 7 days [address] (Scheduling Orders), [address] [facility], [place], [address], 15:26:00 electrocard iogram 2024 025 [facility] ([facility]), [address] [place], [address], 5 15:08:57 MRI, cervical spine, w/o contrast [address] (Scheduling Orders), [address] [place], [address], 5 10:28:56 XR, cervical spine, 4 or 5 view 2024 025 [email or web address] [address] [place], [address], 5 11:55:55 MRI, cervical spine, w/o contrast [address] (Scheduling Orders), [address] [place], [address], 5 16:26:16 XR, thoracic spine, 3 view [email or web address] ([facility]), [address] [place], [address], 4 07:06:32 Medication Orders lisinopril 10 mg tablet 2024 025 [facility], [address] [place] [address], [address], 5 16:42:38 tamsulosin 0.4 mg capsule 2024 025 [facility], [address] [place] [address], [address], 5 16:42:38 cyclobenzap rine 10 mg tablet 2024 025 [facility], [address] [place] [address], [address], 5 05:01:56 meloxicam 15 mg tablet 2024 025 [email or web address] 23 [facility], [address] [place] [address], [address], 5 10:21:34 cyclobenzap rine 10 mg tablet 2024 025 [facility], [address] [place] [address], [address], 5 05:01:56 metoprolol tartrate 25 mg tablet [address], [address], 5 10:55:43 metoprolol tartrate 25 mg tablet 2023 024 [facility], [address] [place] [address], [address], 14:59:56 Patient TargetsNo targets recorded. Patient InstructionsNo instructions recorded. Reason for Referral None Reported. Results Created Date Observation Date Name Description Value Unit Range Abnormal Flag Note LastModifiedBy Organization Detail LastModifiedTime 06/23/1906/23/2024 CBC WBC 5.9 x10 4.5-10 .5 Not Available [facility] [address] [facility] [address], [place], [address], 06/23/2024 14:50:59 06/23/19 25 06/23/2024 CBC RBC 5.45 x10 4.30-5 .90 Not Available [facility] [address] [facility] [address], [place], [address], 06/23/2024 14:50:59 06/23/19 25 06/23/2024 CBC HGB 17.1 g/dL 13.5-1 8.0 Not Available [facility] [address] [facility], [place], [address], 06/23/2024 14:50:59 06/23/19 25 06/23/2024 CBC HCT 47.9 % 35.0-6 0.0 Not Available [facility] [address] [facility] [facility] [place] [address], [place], [address], 06/23/2024 14:50:59 06/23/19 25 06/23/2024 CBC MCV 87.9 fL 80.0-9 9.9 Not Available [facility] [address] [facility] [facility] [place] [address], [place], [address], 06/23/2024 14:50:59 06/23/19 25 06/23/2024 CBC MCH 31.3 pg 27.0-3 2.0 Not Available [facility] [address] [facility] [place] [address], [place], [address], 06/23/2024 14:50:59 06/23/19 25 06/23/2024 CBC MCHC 35.6 g/dL 32.0-3 6.0 Not Available [facility] [address] [facility] [place] [address], [place], [address], 06/23/2024 14:50:59 06/23/19 25 06/23/2024 CBC RDW 13.4 % 11.5-1 4.5 Not Available [facility] [address] [facility] [place] [address], [place], [address], 06/23/2024 14:50:59 06/23/19 25 06/23/2024 CBC plt 111.7 x10 150.0- 451.0 low Not Available [facility] [address] [facility] [place] [address], [place], [address], 06/23/2024 14:50:59 06/23/19 25 06/23/2024 CBC lymphocytes % 26.2 % 20.0-5 0.0 Not Available [facility] [address] [facility] [address], [place], [address], 06/23/2024 14:50:59 06/23/19 25 06/23/2024 CBC granulcytes % 65.8 % 30.0-7 0.0 Not Available [facility] [address] [facility] [address], [place], [address], 06/23/2024 14:50:59 06/23/19 25 06/23/2024 CBC monocytes % 6.6 % 2.0-16 .0 Not Available [facility] [address] [address], [place], [address], 06/23/2024 14:50:59 06/23/19 25 06/23/2024 CBC granulcytes# 3.9 x10 Not [facility] [address] [facility] [address], [place], [address], 06/23/2024 14:50:59 06/23/19 25 06/23/2024 CBC lymphocytes # 1.5 x10 Not Available [facility] [address] [address], [place], [address], 06/23/2024 14:50:59 06/23/19 25 06/23/2024 CBC monocytes # 0.4 x10 Not Avai lable [facility] [address] [address], [place], [address], 06/23/2024 14:50:59 06/23/19 25 06/24/2024 COMPR EHENS ALTAGRACIA METAB OLIC PANEL glucose 92 mg/dL 65-99 normal Fasti ng refer ence inter hilda Not Available [employer] [address] [place], [address], 06/24/2024 05:49:15 06/23/1906/24/2024 COMPR EHENS ALTAGRACIA METAB OLIC PANEL urea nitrogen (BUN) 11 mg/dL 7-25 normal Not Available [address], [address], 06/24/2024 05:49:15 06/23/1906/24/2024 COMPR EHENS ALTAGRACIA METAB OLIC PANEL creatinine 0.93 mg/dL 0.70-1 .30 normal Not Available [address], [address], 06/24/2024 05:49:15 06/23/1906/24/2024 COMPR EHENS ALTAGRACIA METAB OLIC PANEL eGFR 96 mL/mi n/1.7 3m2 > or = 60 normal Not Available [address], [address], 06/24/2024 05:49:15 06/23/1906/24/2024 COMPR EHENS ALTAGRACIA METAB OLIC PANEL BUN/creatini ne ratio SEE NOTE: (calc ) 6-22 Not Repor salma: BUN and Creat inine are withi n refer ence range . Not Available [address], [address], 06/24/2024 05:49:15 06/23/1906/24/2024 COMPR EHENS ALTAGRACIA METAB OLIC PANEL sodium 138 mmol/ L 135-14 6 normal Not Available [address], [address], 06/24/2024 05:49:15 06/23/1906/24/2024 COMPR EHENS ALTAGRACIA METAB OLIC PANEL potassium 4.1 mmol/ L 3.5-5. 3 normal Not Available [address], [address], 06/24/2024 05:49:15 06/23/19 25 06/24/2024 COMPR EHENS ALTAGRACIA METAB OLIC PANEL chloride 101 mmol/ L 98-110 normal Not Available [address], [address], 06/24/2024 05:49:15 06/23/19 25 06/24/2024 COMPR EHENS ALTAGRACIA METAB OLIC PANEL carbon dioxide 27 mmol/ L 20-32 normal Not Available [address], [address], 06/24/2024 05:49:15 06/23/1906/24/2024 COMPR EHENS ALTAGRACIA METAB OLIC PANEL calcium 9.3 mg/dL 8.6-10 .3 normal Not Available [address], [address], 06/24/2024 05:49:15 06/23/19 25 06/24/2024 COMPR EHENS ALTAGRACIA METAB OLIC PANEL protein, total 7.7 g/dL 6.1-8. 1 normal Not Available [address], [address], 06/24/2024 05:49:15 06/23/19 25 06/24/2024 COMPR EHENS ALTAGRACIA METAB OLIC PANEL albumin 4.7 g/dL 3.6-5. 1 normal Not Available [address], [address], 06/24/2024 05:49:15 06/23/19 25 06/24/2024 COMPR EHENS ALTAGRACIA METAB OLIC PANEL globulin 3.0 g/dL_ (calc ) 1.9-3. 7 normal Not Available [address], [address], 06/24/2024 05:49:15 06/23/19 25 06/24/2024 COMPR EHENS ALTAGRACIA METAB OLIC PANEL albumin/glob ulin ratio 1.6 (calc ) 1.0-2. 5 normal Not Available [address], [address], 06/24/2024 05:49:15 06/23/1906/24/2024 COMPR EHENS ALTAGRACIA METAB OLIC PANEL bilirubin, total 0.6 mg/dL 0.2-1. 2 normal Not Available [address], [address], 06/24/2024 05:49:15 06/23/1906/24/2024 COMPR EHENS ALTAGRACIA METAB OLIC PANEL alkaline phosphatase 48 U/L 35-144 normal Not Available [facility] [employer] [address], [address], 06/24/2024 05:49:15 06/23/1906/24/2024 COMPR EHENS ALTAGRACIA METAB OLIC PANEL AST 23 U/L 10-35 normal Not Available [address], [address], 06/24/2024 05:49:15 06/23/1906/24/2024 COMPR EHENS ALTAGRACIA METAB OLIC PANEL ALT 34 U/L 9-46 normal Not Available [address], [address], 06/24/2024 05:49:15 06/23/1906/24/2024 TSH TSH 2.05 mIU/L 0.40-4 .50 normal Not Available [address], [address], 06/24/2024 05:49:16 06/23/1906/24/2024 VITAM IN B12 vitamin B12 343 pg/mL 200-11 00 normal Pleas e Note: Altho ugh the refer ence range for vitam in B12 is 200-1 100 pg/mL , it has been repor salma that betwe en 5 and 10% of patie nts with value s betwe en 200 and 400 pg/mL may exper ience neuro psych iatri c and hemat ologi c abnor malit ies due to occul t B12 defic iency ; less than 1% of patie nts with value s above 400 pg/mL will have sympt oms. Not Available [employer] [facility] [address] [address], [place], [address], 06/24/2024 05:49:17 12/24/1912/23/2024 URINA LYSIS WITH MICRO color YELLOW Not Available [facility] [address], [place], [address], 12/23/2024 11:17:14 12/24/1912/23/2024 URINA LYSIS WITH MICRO clarity CLEAR Not Available [facility] [address], [place], [address], 12/23/2024 11:17:14 12/24/1912/23/2024 URINA LYSIS WITH MICRO glu NEGATI VE Not Available [facility] [address], [place], [address], 12/23/2024 11:17:14 12/24/1912/23/2024 URINA LYSIS WITH MICRO bili NEGATI VE Not Available [facility] [address], [place], [address], 12/23/2024 11:17:14 12/24/1912/23/2024 URINA LYSIS WITH MICRO ket NEGATI VE Not Available [facility] [address], [place], [address], 12/23/2024 11:17:14 12/24/1912/23/2024 URINA LYSIS WITH MICRO S.g 1.010 1.005- 1.025 Not Available [facility] [address], [place], [address], 12/23/2024 11:17:14 12/24/1912/23/2024 URINA LYSIS WITH MICRO pH 7.0 5.0-7. 0 Not Available [facility] [address], [place], [address], 12/23/2024 11:17:14 12/24/1912/23/2024 URINA LYSIS WITH MICRO pro NEGATI VE Not Available [facility] [address], [place], [address], 12/23/2024 11:17:14 12/24/1912/23/2024 URINA LYSIS WITH MICRO uro 0.2 E.U./D L Not Available [facility] [address] [facility] [address], [place], [address], 12/23/2024 11:17:14 12/24/1912/23/2024 URINA LYSIS WITH MICRO nit NEGATI VE Not Available [facility] [address], [place], [address], 12/23/2024 11:17:14 12/24/1912/23/2024 URINA LYSIS WITH MICRO blo NEGATI VE Not Available [facility] [address] [facility], [place], [address], 12/23/2024 11:17:14 12/24/1912/23/2024 URINA LYSIS WITH MICRO tristian NEGATI VE Not Available [facility] [address], [place], [address], 12/23/2024 11:17:14 12/24/1912/23/2024 URINA LYSIS WITH MICRO WBC 0-1 Not Available [facility] [address] [facility] [address], [place], [address], 12/23/2024 11:17:14 12/24/1912/23/2024 URINA LYSIS WITH MICRO RBC NEGATI VE Not Available [facility] [address] [facility], [place], [address], 12/23/2024 11:17:14 12/24/1912/23/2024 URINA LYSIS WITH MICRO epi cells NEGATI VE Not Available [facility] [address] [facility] [address], [place], [address], 12/23/2024 11:17:14 12/24/1912/23/2024 URINA LYSIS WITH MICRO bacteria NEGATI VE Not Available [facility] [address] [facility] [address], [place], [address], 12/23/2024 11:17:14 12/24/1912/23/2024 URINA LYSIS WITH MICRO other NG Not Available [facility] [address], [place], [address], 12/23/2024 11:17:14 12/24/1912/23/2024 CBC WBC 6.1 x10 4.5-10 .5 Not Available [facility] [address] [facility] [address], [place], [address], 12/23/2024 11:37:06 12/24/1912/23/2024 CBC RBC 5.62 x10 4.30-5 .90 Not Available [facility] [address] [facility] [address], [place], [address], 12/23/2024 11:37:06 12/24/1912/23/2024 CBC HGB 17.7 g/dL 13.5-1 8.0 Not Available [facility] [address] [facility] [address], [place], [address], 12/23/2024 11:37:06 12/24/1912/23/2024 CBC HCT 52.3 % 35.0-6 0.0 Not Available [facility] [address] [facility] [address], [place], [address], 12/23/2024 11:37:06 12/24/1912/23/2024 CBC MCV 93.0 fL 80.0-9 9.9 Not Available [facility] [address] [facility] [address], [place], [address], 12/23/2024 11:37:06 12/24/1912/23/2024 CBC MCH 31.4 pg 27.0-3 2.0 Not Available [facility] [address] [facility] [address], [place], [address], 12/23/2024 11:37:06 12/24/19 25 12/23/2024 CBC MCHC 33.8 g/dL 32.0-3 6.0 Not Available [facility] [address] [facility] [address], [place], [address], 12/23/2024 11:37:06 12/24/1912/23/2024 CBC RDW 13.4 % 11.5-1 4.5 Not Available [facility] [address] [facility] [address], [place], [address], 12/23/2024 11:37:06 12/24/1912/23/2024 CBC plt 124.9 x10 150.0- 451.0 low Not Available [facility] [address] [facility] [address], [place], [address], 12/23/2024 11:37:06 12/24/19 25 12/23/2024 CBC lymphocytes % 26.8 % 20.0-5 0.0 Not Available [facility] [address] [facility] [facility], [place], [address], 12/23/2024 11:37:06 12/24/19 25 12/23/2024 CBC granulcytes % 64.6 % 30.0-7 0.0 Not Available [facility] [address] [facility] [address], [place], [address], 12/23/2024 11:37:06 12/24/19 25 12/23/2024 CBC monocytes % 6.2 % 2.0-16 .0 Not Available [facility] [address] [facility] [address], [place], [address], 12/23/2024 11:37:06 12/24/19 25 12/23/2024 CBC granulcytes# 3.9 x10 Not [facility] [address] [address], [place], [address], 12/23/2024 11:37:06 12/24/19 25 12/23/2024 CBC lymphocytes # 1.6 x10 Not Available [facility] [address] [facility] [address], [place], [address], 12/23/2024 11:37:06 12/24/19 25 12/23/2024 CBC monocytes # 0.4 x10 Not Avai lable [facility] [address] [address], [place], [address], 12/23/2024 11:37:06 12/29/19 24 12/29/2023 XR, thora cic spine , 3 view No observ ation record ed. [email or web address] [facility] [address] [facility], [place], [address], 12/30/2023 18:10:58 06/24/19 25 06/23/2024 XR, cervi kinza spine , 4 or 5 view No observ ation record ed. [email or web address] [facility] [address] [place], [address], 06/24/2024 14:52:19 09/13/19 25 09/12/2024 MRI, cervi kinza spine , w/o contr ast No observ ation record ed. [email or web address] [facility] (Scheduling Orders) [address] [place], [address], 09/13/2024 16:21:08 12/24/19 25 12/23/2024 elect shreya diogr am No observ ation record ed. [email or web address] [facility] [address] [place], [address], 12/23/2024 15:35:49 Result Notes None recorded. Problems Name Problem SNOMED Code Status Onset Date Resolution Date Notes Provider Name and Address Organization Details Recorded Time Neck pain 97559209 Active 2024 JOJO ulloa [facility] 17:05:21 Essential hypertensio n 00192280 Active 2024 JOJO ulloa [facility] 15:46:44 Spinal stenosis in cervical region with myelopathy 0390099927639 Active 2024 JOJO ulloa [facility] 18:23:23 Problem Notes None recorded. Procedures Surgical History Date Name Laterality Status Provider Name and Address Organization Details Recorded Time appendectomy completed Lexis Cruz [facility] 12/23/2024 10:24:17 Imaging Results None recorded. Procedure [...] Not Available Vitals Date Recorded Body height Body mass index (BMI) Body weight Oxygen saturation Oxygen saturation in Arterial blood by Pulse oximetry Heart rate Respiratory rate Body temperature Systolic And Diastolic Provider Name and Address Organization Details Last Updated DateTime 5 193.04 cm 27.4 kg/m2 015067. 28 g 99 % 99 % 80 /min 20 /min 98 [degF] 140/92 mm[Hg] JOJO [facility] 5 13:56:22 Date Recorded Body height Body mass index (BMI) Body weight Oxygen saturation Oxygen saturation in Arterial blood by Pulse oximetry Heart rate Respiratory rate Body temperature Systolic And Diastolic Provider Name and Address Organization Details Last Updated DateTime 5 193.04 cm 27 kg/m2 722416. 51 g 99 % 99 % 78 /min 18 /min 98.2 [degF] 138/80 mm[Hg] [facility] 5 11:44:47 Date Recorded Body height Body mass index (BMI) Body weight Oxygen saturation Oxygen saturation in Arterial blood by Pulse oximetry Heart rate Respiratory rate Body temperature Systolic And Diastolic Provider Name and Address Organization Details Last Updated DateTime 5 193.04 cm 27.6 kg/m2 580469. 47 g 98 % 98 % 72 /min 18 /min 98 [degF] 130/88 mm[Hg] JOJOTED MILANOSMEL [facility] 5 10:38:42 Date Recorded Body height Heart rate Oxygen saturation Oxygen saturation in Arterial blood by Pulse oximetry Body temperature Systolic And Diastolic Provider Name and Address Organization Details Last Updated DateTime 5 193.04 cm 68 /min 98 % 98 % 98 [degF] 130/86 mm[Hg] DELMA MCCAULEY PA-C [address] [place] [address], [address], [facility] 5 10:36:06 Date Recorded Body mass index (BMI) Body weight Respiratory rate Provider Name and Address Organization Details Last Updated DateTime 12/23/2024 28 kg/m2 035603.53 g 20 /min Lexis Anthony [facility] 12/23/2024 10:46:05 Date Recorded Body height Body mass index (BMI) Body weight Oxygen saturation Oxygen saturation in Arterial blood by Pulse oximetry Heart rate Respiratory rate Body temperature Systolic And Diastolic Provider Name and Address Organization Details Last Updated DateTime 4 193.04 cm 27.9 kg/m2 909252. 65 g 98 % 98 % 76 /min 20 /min 98 [degF] 140/80 mm[Hg] JOJO HAEFOSMEL [facility] 4 09:20:36 Social History Question Answer Notes LastModified by [employer] Details LastModified Time Tobacco Smoking Status Former Smoker nicotine patches. he chewed until the first 2023 Lexis Cruz [facility] 12/23/2024 10:23:51 What Is Your Level Of Caffeine Consumption? Occasional [email or web address] Information not available 12/23/2024 Sex: Unknown Functional Status Question Answer Note LastModified by [employer] Details LastModified Time Do you use any illicit or recreational drugs? No [email or web address] Information not available 12/23/2024 What is your level of alcohol consumption? Occasional [email or web address] Information not available 12/23/2024 Mental Status None recorded. Family History Nothing Reported. Medical History No medical history recorded. Immunizations Vaccine Type Date Status Note Provider Nam e and Address Organization Details Recorded Time COVID-19, mRNA, LNP-S, PF, 100 mcg/0.5mL dose or 50 mcg/0.25mL dose 12/21/2020 completed Rachel ulloa [facility] 12/22/2023 12:35:53 COVID-19, mRNA, LNP-S, PF, 100 mcg/0.5mL dose or 50 mcg/0.25mL dose 01/18/2021 completed Rachel ulloa [facility] 12/22/2023 12:35:53 Past Encounters Encounter ID Performer Location Encounter Start Date Encounter Closed Date Diagnosis/Indication Diagnosis SNOMED-CT Code Diagnosis ICD10 Code Diagnosis Note [id number] PEARL PRESLEY [facility] ([facility]) [address] [place] [id number] 12/22/2023 12:32:22 12/22/2023 14:01:23 Essential hypertension 85344147 I10 Discussed with patient to take a metoprolol when he arrives home. Recheck bp in 2 hours. May restart his metoprolol daily. Contact the Cardiology office to schedule f/u.If any symptoms worsen or bp continues to rise, then f/u in ER. [id number] DELMA MCCAULEY PA-C [facility] ([facility]) [address] [place] [id number] 12/29/2023 09:16:29 02/02/2024 07:06:32 Thoracic back pain 104962652 M54.6 Essential hypertension 81629671 I10 [id number] DELMA MCCAULEY PA-C [facility] ([facility]) [address] [place] [id number] 06/23/2024 13:46:39 06/24/2024 11:55:55 Spinal stenosis in cervical region with myelopathy 8909297409 105 M48.02 Pt has tried and failed home exercise program, massage and chiropract er care. Failure of NSAIDs.Due to increase in neurologic al symptoms of tingling and arm weekness, I feel pt needs a MRI of the neck to see of impingemen t is occuring to manifest his sytmposm. Fatigue 76656776 R53.83 Paresthesia of hand 3090 [address]953 R20.2 Essential hypertension 14197243 I10 [id number] DELMA MCCAULEY PA-C [facility] ([facility]) [address] [place] [id number] 09/01/2024 11:13:54 09/03/2024 07:08:00 Spinal stenosis in cervical region with myelopathy 9726239404 105 M48.02 Pt has tried and failed 6 weeks of PT, massage and chiropract or care. Failure of NSAIDs.Due to increase in neurologic al symptoms of tingling and arm weakness, I feel pt needs a MRI of the neck to see of impingemen t is occurring to manifest his symptoms. [id number] DELMA MCCAULEY PA-C [facility] ([facility]) [address] [place] [id number] 09/27/2024 10:16:51 09/27/2024 11:12:31 Intermittent palpitations 313610831 R00.2 reviewed his home pulses and BP. got into [facility] system and reviewed his last appt with Dr. Choco Camp. and his holter reports from 2020.For now my advise is to stay on the scheduled BID Metoprolol 25 bid and take an extra dose on the days his pulse gets over 100. Spinal neno nosis in cervical region with myelopathy [id number] [address] M[address] Jorge on October 03 Essential hypertension [id number] I10 [id number] DELMA MCCAULEY PA-C [facility] ([facility]) [address] [place] [phone] 12/23/2024 10:13:45 12/23/2024 11:52:32 Palpitations [id number] R00.2 reviewed his home pulses and BP. got into [facility] system and reviewed his last appt with Dr. Choco Camp.24 and his holter reports from 2020.For now my advise is to stay on the scheduled BID Metoprolol 25 bid and take an extra dose on the days his pulse gets over 100. Tachycardia [id number] R00. 0 Fatigue [id number] R53.83 Nocturia d ue to benign prostatic hypertrophy [id number] 101 N40.1 R35.1 Essential hypertension [id number] I10 Health Concerns Section Related Observation LastModified by Organization Detai ls LastModified Time None Recorded Concern Status LastModified by Organization Details LastModified Time None Recorded Advance Directives Directive None Recorded Payers Insurance Date Sequence Insurance Name Policy Number Policy Kiran Covered Member ID Kiran Member ID Guarantor Name 12/23/2024 1 [facility] [facility] (EPO) [id number] Taz Scott [id number] Taz Scott Notes Date Note Type Note Provider Name and Address Organization Details Recorded Time 12/29/19 24 text/ht ml jr chest pain hpiReported by PatientHPIFor location, patient reportsradiates to the neckbut reportsright scapularandmid substernal. For quality, patient reportspressure,squeezing,tightne ss,soreness,pleuritic, andconstriction. For context, patient reportsexertional. For severity, patient reportsmoderate. For duration, patient reportstypical duration is ____ hours. For onset/timing, patient reportshas noted for years,multiple times per day,gradual onset, andintermittent. HypertensionReported by PatientHPIFor quality, patient reportspressureandweakness. For context, patient reportsat rest. For associated symptoms, patient reportsfatiguebut reportsno shortness of breathandno palpitations. For severity, patient reportsgrade 2 (>/=140/90). For duration, patient reportshas noted for years. For onset/timing, patient reportsgradual onset. For alleviating factors, patient reportsmedication. For self care, patient reportschecks blood pressure at home (range 127/85)andblood pressure goal: 120/70(heart rate 70-82). Atypical chest pain is bilateral and radiates up into the neck and right scapular has had almost daily it for years uses biofreeze. using metoprolol bid nowFeels better when BP is downHe has normal stress test several years back. DELMA MCCAULEY PA-C [address] [place], [phone], [facility] 02/01/2024 20:36:29 06/23/19 25 text/ht ml Musculoskeletal PainReported by PatientHPIFor quality, patient reportssharp,tingling, anddull. For severity, patient reportsworsening,interferes with sleep, andinterferes with work/school. For associated symptoms, patient reportsweak limbsandtingling. For location, patient reportsbilateral neck,bilateral shoulder,bilateral arm,bilateral elbow,bilateral wrist, andbilateral hand. For duration, patient reportspresent for >12 months. For timing, patient reportsconstant,pain at night, andgradual. For alleviating factors, patient reportsmedications: biofreeze. For aggravating factors, patient reportsmovement/positioning,bendi ng over, andtwisting. For adls affected, patient reportswalking,sweeping,mopping,b athing,dressing,eating, andclimbing stairs. MY CHEST AND NECK HURT OVER INTO MY SHOULDER AND DOWN ARMS, I HAVE A CHIROPRACTOR APPT. THIS AFTERNOON SHOULD I KEEP IT. DELMA MCCAULEY PA-C [address] [place] [address], [phone], [facility] 06/24/2024 15:23:58 09/02/19 25 text/ht ml Musculoskeletal PainReported by PatientHPIFor quality, patient reportssharp,tingling, anddull. For severity, patient reportsinterferes with sleepandinterferes with work/school. For location, patient reportsleft neck. For duration, patient reportspresent for 6-12 months. For timing, patient reportsconstant. For aggravating factors, patient reportsmovement/positioning,bendi ng over, andtwisting. For adls affected, patient reportswalking,sweeping,mopping,d ressing, andclimbing stairs. I went to PT but they wanted me to see Delma before I go back.I went to [facility] and seen Dr Radford he was able to see the x ray report from Delma he gave me some more muscle relaxers and told me to take them bid. I need refills on them. I haven't taken any meloxicam not sure why. DELMA MCCAULEY PA-C [address] [place], [phone], [facility] 09/02/2024 14:25:54 09/28/19 25 text/ht ml HypertensionReported by PatientHPIFor quality, patient reportspressureandweakness. For aggravating factors, patient reportsmedication. For associated symptoms, patient reportsfatigueanddecreased exercise tolerancebut reportsno shortness of breath. For severity, patient reportsgrade 1 (130-139/80-89). For duration, patient reportshas noted for years. For onset/timing, patient reportsgradual onset. For alleviating factors, patient reportsmedication. For self care, patient reportsblood pressure goal: 120/70. October 04 Dr. Jorge appt her in . HR was elevated this weekend. no more than 106. BPs max was 146.90 min 106/66no syncope. Thinks pain elevates his pulse and BP. DELMA MCCAULEY PA-C [address] [place], [phone], [facility] 09/27/2024 11:06:59 12/24/19 25 text/ht ml PalpitationsReported by PatientHPIFor [...] blood pressure elevation over additional stress this snkh586/95 hr85 135/[address] Worrell wanted him to see Dr. Antoine. Still waiting to gt in Now appt in Jan. DELMA MCCAULEY PA-C [address] [place], [phone], [facility], Ana Cristina 12/23/2024 15:26:19
[2024-12-25 15:26] VITALS: BP 95/58; PULSE 114; RESP 16; TEMP 36.9; O2SAT 97
--- NOTE | 2024-12-25 15:33 | XRR_ITS ---
PROCEDURE INFORMATION: Exam: XR Chest Exam date and time: 12/25/2024 3:36 PM Age: 59 years old Clinical indication: Pain; Chest pressure; Additional info: Cp TECHNIQUE: Imaging protocol: Radiologic exam of the chest. Views: 1 view. COMPARISON: CR XR chest 1V portable [id number] 06/19/2023 3:47 PM FINDINGS: Lungs: Bilateral apical fibrotic changes. There is no evidence of focal pulmonary consolidation. Pleural spaces: Unremarkable. No pleural effusion. No pneumothorax. Heart/Mediastinum: Unremarkable. No cardiomegaly. Vasculature: There is unfolding of the thoracic aorta. Bones/joints: Mild degenerative disease of bilateral acromioclavicular joints. There are mild degenerative changes of the glenohumeral joint. XR/XR chest 1V portable [id number] IMPRESSION: No acute cardiopulmonary process.
[2024-12-25 16:00] LABS: Hematocrit 47.5 % (37-53); Hemoglobin 16.50 g/dL (11.27-16.99); Mean Corpuscular HGB Conc 34.7 g/dL (30-55); Mean Corpuscular Hemoglobin 30.7 pg (27-33); Mean Corpuscular Volume 88.3 fl (82-101); Nucleated Red Blood Cells % 0 %; Platelet Count 121 10^3/cmm (157-399); Red Blood Count 5.38 10^6/uL (3.85-5.65); White Blood Count 6.78 10^3/uL (3.29-11.43)
[2024-12-25 16:09] LABS: INR 0.94 (0.8-1.2); Prothrombin Time 13.30 SECONDS (12.1-14.9)
[2024-12-25 16:22] VITALS: PULSE 106; RESP 20; O2SAT 95
[2024-12-25 16:24] LABS: Alanine Aminotransferase 37 U/L (0-41); Albumin Level 4.4 g/dL (3.5-5.2); Alkaline Phosphatase 65 U/L (40-130); Blood Urea Nitrogen 9 mg/dL (6-20); Calcium 9.7 mg/dL (8.5-10.5); Carbon Dioxide 21 mmol/L (22-29); Chloride 98 mmol/L (98-107); Creatinine Clr Calc Pharmacy 120.1584; Globulin 2.9 g/dL (1.3-4.6); Glucose 123 mg/dL (65-115); Lipase 23 U/L (13-60); Osmolality Calculated 280 mOsm/kg (285-295); Sodium 135 mmol/L (136-145); Total Protein 7.3 g/dL (6.6-8.7)
[2024-12-25 16:29] LABS: Anion Gap 19.8 (5-19); Aspartate Amino Transferase 25 U/L (0-40); Potassium 3.8 mmol/L (3.5-5.1)
[2024-12-25 16:35] LABS: Troponin(5th) Baseline < 6 ng/L (0-15)
[2024-12-25 16:36] VITALS: BP 105/66; PULSE 106; O2SAT 96
[2024-12-25 17:00] VITALS: BP 118/78; PULSE 108; O2SAT 97
[2024-12-25 17:13] LABS: Free T4 Free Thyroxine 0.94 ng/dL (0.82-1.77); Thyroid Stimulating Hormone 3.49 uIU/mL (0.27-4.20)
[2024-12-25 17:26] LABS: Lactic Sepsis W/Reflex 1.9 mmol/L (0.5-2.2)
[2024-12-25 17:31] LABS: Glucose Urine UA Negative (Normal); Nitrate Urine Negative (Negative); Specific Gravity, Urine 1.007 (1.005-1.030)
--- NOTE | 2024-12-25 17:31 | ECG_ITS ---
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
[2024-12-25 17:35] LABS: Alcohol Level < 10 mg/dL (0-10)
[2024-12-25 17:36] LABS: Add Urine Microscopic? YES
[2024-12-25 17:39] LABS: PCP Screen Urine Negative (Negative)
--- NOTE | 2024-12-25 17:53 | ED_ITS ---
HPI - Arrhythmia/Palpitations 2 General: Chief Complaint: Arrhythmia/Palpitations Stated Complaint: heart feels like its flutter, chest tighness Time Seen by Provider: 12/25/24 16:07 History of Present Illness: The patient presents with a chief complaint of heart rate fluttering and palpitations in the chest. This is a recurrent issue, with a similar episode occurring approximately 4 years ago when the patient wore a heart monitor. The patient reports feeling like their heart rate is elevated. They have been experiencing tingling and numbness in their shoulders, arms, and hands, which may be related to bone spurs and a pinched nerve in the neck. The patient takes their blood pressure regularly, both morning and night, and states they can recognize when their blood pressure is high or low based on how they feel. Recently, the patient visited their regular doctor on Thursday due to experiencing similar symptoms. They were prescribed new medications, including one for blood pressure and another for urinary hesitation. The patient reports occasional difficulty urinating. They are also taking muscle relaxers and metoprolol, which is administered twice daily - once in the morning and once at night. The patient's last cardiac-related medical care was with Dr. Wilhelm, who discharged them from care about a year ago due to an absence of episodes. Prior to Dr. Wilhelm, the patient was under the care of Dr. Collins, a client relationship consultant, who suggested the possibility of an electrical issue with the heart. Regarding lifestyle factors, the patient reports drinking one sugar-containing energy drink daily and consuming alcohol. They had three beers yesterday and part of one today, though they mention feeling unwell before drinking. The patient denies drinking sodas. Related Data Home Medications ?Medication ?Instructions ?Recorded ?Confirmed acetaminophen 325 mg tablet 325 mg PO QID PRN Pain 08/06/24 (Tylenol) ibuprofen 200 mg tablet 600 mg PO Q6H PRN Pain 06/1908/06/24 Previous Rx's ?Medication ?Instructions ?Recorded metoprolol tartrate 25 mg tablet 25 mg PO BID #30 tabs 12/25/23 cyclobenzaprine 10 mg tablet 10 mg PO TID PRN muscle s pasm #30 08/06/24 tabs Allergies Allergy/AdvReac Type Severity Reaction Status Date / Time lisinopril Allergy Unknown Verified 08/06/24 16:35 Review of Systems 2 General: Reports: 10 or more systems reviewed and unremarkable except in HPI and below PFSH ED 2 PFSH: Medical History Tobacco chew use Surgical History S/P appendectomy Family History Father Diabetes Mother Hypertension Social History Smoking and tobacco/nicotine status: never used tobacco/nicotine Physical Exam 2 Const: COMMON NORMALS: no acute distress, patient oriented x3, healthy appearing, alert and well nourished HENMT: COMMON NORMALS: normocephalic HEAD & SCALP: normocephalic Eye: COMMON NORMALS: EOMs intact bilaterally Neck/C-Spine: COMMON NORMALS: full ROM and supple Resp: COMMON NORMALS: normal respiratory effort, No retractions and clear to auscultation bilaterally AUSCULTATION: clear to auscultation bilaterally Cardio: COMMON NORMALS: regular rhythm, No gallops present (Cardio) and No murmurs present (Cardio) RATE: tachycardic RHYTHM: regular rhythm GI: COMMON NORMALS: Soft to palpation and non-tender PALPATION: Yes Soft to palpation Extremity: GENERAL: Yes normal exam except as noted Neuro: COMMON NORMALS: patient oriented x3 SENSORIUM/ORIENTATION: Yes alert Skin: COMMON NORMALS: no rashes or lesions noted GENERAL SKIN EXAM: no rashes or lesions noted Course 2 Vital Signs: Vital signs: Vital Signs Temperature 98.4 F 12/25/24 15:26 Pulse Rate 108 H 12/25/24 17:00 Respiratory Rate 20 H 12/25/24 16:22 Blood Pressure 118/78 12/25/24 17:00 Pulse Oximetry 97 12/25/24 17:00 Oxygen Delivery Me thod Room Air 12/25/24 17:00 MDM - Arrhythmia/Palpitations Medical Decision Making Patient presents with complaints of heart rate fluttering and palpitations. EKG shows sinus tachycardia. Patient has a history of similar episodes 4 years ago, which required wearing a athletic monitor. Currently on metoprolol twice daily. Differential diagnoses include primary cardiac etiology vs. secondary causes of tachycardia. Contributing factors may include recent alcohol consumption and daily intake of high-sugar beverages. He did not have any signs of infection. Thyroid exam was normal, alcohol and drug screens were normal, lactic acid was normal level, and chest x-ray was normal. He had negative troponins x 2. Both of his EKG showed sinus tachycardia. Source of the patient's sinus tachycardia still unknown at this time. However, ruled out all reasonable emergent conditions that could result in tachycardia. This was discussed with the patient and his who were in agreement to continue this workup outpatient. Encourage patient to follow-up with his primary care doctor and client relationship consultant. Return precautions were discussed and the patient was discharged home in stable condition. Lab Data 12/25/24 15:52 12/25/24 15:52 Radiology Impressions Chest X-Ray 12/25/24 15:33 IMPRESSION: No acute cardiopulmonary process. Laboratory Results WBC 6.78 10^3/uL (3.29-11.43) 12/25/24 15:52 RBC 5.38 10^6/uL (3.85-5.65) 12/25/24 15:52 Hgb 16.50 g/dL (11.27-16.99) 12/25/24 15:52 Hct 47.5 % (37-53) 12/25/24 15:52 MCV 88.3 fl (82-101) 12/25/24 15:52 MCH 30.7 pg (27-33) 12/25/24 15:52 MCHC 34.7 g/dL (30-55) 12/25/24 15:52 RDW 12.8 % (12.1-15.1) 12/25/24 15:52 Plt Count 121 10^3/cmm (157-399) L 12/25/24 15:52 MPV 10.5 fL (7.4-10.4) H 12/25/24 15:52 Neut % (Auto) 58.0 % 12/25/24 15:52 Lymph % (Auto) 32.2 % 12/25/24 15:52 Travis % (Auto) 6.9 % 12/25/24 15:52 Eos % (Auto) 1.6 % 12/25/24 15:52 Baso % (Auto) 0.7 % 12/25/24 15:52 Neut # (Auto) 3.93 10^3/uL (1.8-7.7) 12/25/24 15:52 Lymph # (Auto) 2.2 10^3/uL (0.8-4.8) 12/25/24 15:52 Travis # (Auto) 0.5 10^3/uL (0.2-0.9) 12/25/24 15:52 Eos # (Auto) 0.1 10^3/uL (0.0-0.8) 12/25/24 15:52 Baso # (Auto) 0.1 10^3/uL (0.0-0.1) 12/25/24 15:52 Nucleated RBC % (auto) 0 % 12/25/24 15:52 Nucleated RBCs # 0.0 /100WBC 12/25/24 15:52 PT 13.30 SECONDS (12.1-14.9) 12/25/24 15:52 INR 0.94 (0.8-1.2) 12/25/24 15:52 Sodium 135 mmol/L (136-145) L 12/25/24 15:52 Potassium 3.8 mmol/L (3.5-5.1) 12/25/24 15:52 Chloride 98 mmol/L (98-107) 12/25/24 15:52 Carbon Dioxide 21 mmol/L (22-29) L 12/25/24 15:52 Anion Gap 19.8 (5-19) H 12/25/24 15:52 BUN 9 mg/dL (6-20) 12/25/24 15:52 Creatinine 0.9 mg/dL (0.7-1.2) 12/25/24 15:52 GFR Calculation 87.0 mL/min (90-130) L 12/25/24 15:52 Glucose 123 mg/dL (65-115) H 12/25/24 15:52 Calculated Osmolality 280 mOsm/kg (285-295) L 12/25/24 15:52 Lactic Acid 1.9 mmol/L (0.5-2.2) 12/25/24 15:52 Calcium 9.7 mg/dL (8.5-10.5) 12/25/24 15:52 Total Bilirubin 0.5 mg/dL (0.15-1.2) 12/25/24 15:52 AST 25 U/L (0-40) 12/25/24 15:52 ALT 37 U/L (0-41) 12/25/24 15:52 Alkaline Phosphatase 65 U/L (40-130) 12/25/24 15:52 Troponin T Baseline < 6 ng/L (0-15) 12/25/24 15:52 Troponin T 120 Minute 7.18 ng/L (0-15) 12/25/24 17:55 Delta Troponin T 1.15318 ABS# (0-10) 12/25/24 17:55 Total Protein 7.3 g/dL (6.6-8.7) 12/25/24 15:52 Albumin 4.4 g/dL (3.5-5.2) 12/25/24 15:52 Globulin 2.9 g/dL (1.3-4.6) 12/25/24 15:52 Lipase 23 U/L (13-60) 12/25/24 15:52 TSH 3.49 uIU/mL (0.27-4.20) 12/25/24 15:52 Free T4 0.94 ng/dL (0.82-1.77) 12/25/24 15:52 Free T3 3.0 PG/ML (2.0-4.4) 12/25/24 15:52 Urine Color Yellow (Yellow) 12/25/24 17:20 Urine Appearance Clear (CLEAR) 12/25/24 17:20 Urine pH 6.0 (5-7) 12/25/24 17:20 Ur Specific [place] 1.007 (1.005-1.030) 12/25/24 17:20 Urine Protein Negative (Negative) 12/25/24 17:20 Urine Glucose (UA) Negative (Normal) 12/25/24 17:20 Urine Ketones Negative (Negative) 12/25/24 17:20 Urine Blood Negative (Negative) 12/25/24 17:20 Urine Nitrate Negative (Negative) 12/25/24 17:20 Urine Bilirubin Negative (Negative) 12/25/24 17:20 Urine Urobilinogen 0.2 mg/dL (Negative) 12/25/24 17:20 Ur Leukocyte Esterase Negative (Negative) 12/25/24 17:20 Urine RBC 0-2 /hpf (0-2) 12/25/24 17:20 Urine WBC 0-5 /hpf (0-5) 12/25/24 17:20 Ur Squamous Epith Cells 0-5 /hpf (0-5) 12/25/24 17:20 Amorphous Sediment Not Reportable 12/25/24 17:20 Urine Bacteria None seen /hpf (NONE) 12/25/24 17:20 Hyaline Casts 0-4 /lpf H 12/25/24 17:20 Urine Opiates Screen Negative ng/mL (Negative) 12/25/24 17:20 Ur Barbiturates Screen Negative ng/mL (Negative) 12/25/24 17:20 Ur Phencyclidine Scrn Negative ng/mL (Negative) 12/25/24 17:20 Ur Amphetamines Screen Negative ng/mL (Negative) 12/25/24 17:20 U Benzodiazepines Scrn Negative ng/mL (Negative) 12/25/24 17:20 Urine Cocaine Screen Negative ng/mL (Negative) 12/25/24 17:20 U Marijuana (THC) Screen Negative ng/mL (Negative) 12/25/24 17:20 Ethyl Alcohol < 10 mg/dL (0-10) 12/25/24 15:52 All radiology interpretation(s) finalized by discharge EKG Data EKG 1: Interpretation: Sinus tachycardia with a rate of 113, OR 143, QRS 93, QTc 379, no ST segment elevation or depression Other EKG comments: Chest X-Ray 12/25/24 15:33 IMPRESSION: No acute cardiopulmonary process. EKG 2: Interpretation: Sinus tachycardia with a rate of 104, OR 152, QRS 94, QTc 386, no ST segment elevation or depression Other EKG comments: Chest X-Ray 12/25/24 15:33 IMPRESSION: No acute cardiopulmonary process. Discharge Plan Discharge Patient Disposition: Home Clinical Impression: Intermittent palpitations, Sinus tachycardia Condition: Stable Prescriptions: No Action acetaminophen [Tylenol] 325 mg tablet 325 mg PO QID PRN (Reason: Pain) cyclobenzaprine 10 mg tablet 10 mg PO TID PRN (Reason: muscle spasm) Qty: 30 3RF metoprolol tartrate 25 mg tablet 25 mg PO BID Qty: 30 1RF ibuprofen 200 mg Tablet 600 mg PO Q6H PRN (Reason: Pain) Discharge Orders: Discharge ED (Routine); Ordered 12/25/24 Ordered By: Yoshi Bergman Referrals: Delma Morales PA [Primary Care Provider, [facility]] Discharge Diet: Advance as tolerated Discharge Activity: Resume usual activity Patient Instructions: Opioid Safety, Pain Management, Patient Portal & Dharmesh Instructions Activity Restrictions/Additional Instructions: Follow-up with your primary care physician. Return to the emergency department for any new or worsening symptoms. 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
[2024-12-25 18:21] LABS: Troponin 5 2HR 7.18 ng/L (0-15); Troponin 5 2HR Delta 1.18001 ABS# (0-10)
[2024-12-25 19:01] VITALS: BP 118/64; PULSE 99; O2SAT 96
== END 2024-12-25 19:02 | disposition home or self-care (01) ==
PROVIDERS: Emergency Medicine; Emergency Provider General Practice; PCP Physician Assistant
DX: R00.2 Palpitations (principal); R00.0 Tachycardia, unspecified
CPT/HCPCS: 36415; 71045; 80053; 80306; 80307; 81001; 82803; 83605; 83690; 84439; 84443; 84481; 84484; 85025; 85610; 93005; 99285